=== PATIENT | female | born 1970 | race Caucasian/White ===

== ENCOUNTER → 2024-04-30 09:47 | Outpatient (CLI) | payer OTHER, SELFPAY ==
--- NOTE | 2024-04-30 | DI.MG.S_ITS ---
BILATERAL DIGITAL DIAGNOSTIC MAMMOGRAM 3D/2D: 04/30/2024 CLINICAL: Right breast lump 2 weeks ago feels irregular and moves --smaller than a dime size. No CBE done. Due for bilateral routine. Family history of breast cancer. Comparison is made to exams dated: 10/07/2020 mammogram - [facility] and 10/08/2020 mammogram. The breasts are extremely dense, which lowers the sensitivity of mammography (category d />75% glandular tissue). There is a 1.3 cm oval focal asymmetry with an obscured margin in the right breast at 10 o'clock anterior depth. This correlates as palpated, with area of clinical concern, and skin marker. No other significant masses, calcifications, or other findings are seen in either breast. IMPRESSION: INCOMPLETE: NEED ADDITIONAL IMAGING EVALUATION The 1.3 cm oval focal asymmetry in the right breast resembles a cyst and is indeterminate. An ultrasound is recommended for further evaluation and is scheduled to immediately follow this examination. Based on Tyrer-Cuzick model (a risk assessment model), the patient's lifetime risk is 39.6% and her 10 year risk is 11.7%. If a patient has an elevated risk, a more comprehensive evaluation should be considered and/or a referral to a genetic counselor. The [employer] [employer], [employer], and NCCN Guidelines advise the consideration of Breast MRI as an adjunct to screening mammography in patients whose Lifetime risk to develop breast cancer is 20% or higher. This exam was interpreted at Station ID: [id number]. NOTE: For mammograms, a report in lay terms will be sent to the patient. Approximately 15% of breast malignancies will not be visualized mammographically. In the management of a palpable breast mass, a negative mammogram must not discourage biopsy of a clinically suspicious lesion. Electronically Signed By: Dom Elias M.D. aty/:04/30/2024 11:37:18 letter sent: Additional Imaging Needed ACR BI-RADS Category 0: Incomplete: Need Additional Imaging Evaluation
--- NOTE | 2024-04-30 | DI.US.S_ITS ---
PROCEDURE: US BREAST RT LIMITED COMPARISON: None. INDICATIONS: right breast mass FINDINGS: IMPRESSION: Dictated by: Dom Elias M.D. on 04/30/2024 at 11:14 Approved by: Dom Elias M.D. on 04/30/2024 at 11:15
--- NOTE | 2024-04-30 10:59 | DI.US.S_ITS ---
Patient Name: NIA RICHTER date: 1970 Sex: F Attending Physician: Jeremy Indications: Date: 04/30/2024 11:19 At the request of: STEVEN FRANKLIN Procedure: US breast RT limited LIMITED ULTRASOUND OF RIGHT BREAST AND AXILLA: 04/30/2024 CLINICAL: Palpable right breast lump. Comparison is made to exams dated: 04/30/2024 mammogram - [facility], 10/08/2020 mammogram, and 10/07/2020 mammogram - [facility]. Color flow and real-time ultrasound of the right breast 10 o'clock, and axilla regions were performed. Barriga scale images of the real-time examination were reviewed. There is a 1.5 cm x 1.2 cm x 1.5 cm wider than tall simple cyst in the right breast at 10 o'clock anterior depth 4 cm from the nipple. This simple cyst is hypoechoic with a well-defined boundary and posterior acoustic enhancement and mild mobile internal debris. This correlates as palpated, with mammography findings, and area of clinical concern. Color flow imaging demonstrates that there is no vascularity present. No significant abnormalities were seen sonographically in the right axilla. IMPRESSION: BENIGN There is no sonographic evidence of malignancy. The 1.5 cm x 1.2 cm x 1.5 cm wider than tall simple cyst in the right breast is benign. Recommend clinical follow up for persistent or worsening symptoms, or development of any clinically suspicious findings. A 1 year screening mammogram is recommended. Additionally, patient has an elevated lifetime risk for breast cancer of greater than 20%. Recommend consideration for screening breast MRI as an adjunct to screening mammography. Continued Report - Page 2 of 2 Patient Name: NIA RICHTER date: 1970 Sex: F Attending Physician: Jeremy Indications: Date: 04/30/2024 11:19 At the request of: STEVEN FRANKLIN Procedure: US breast RT limited Findings and recommendations were conveyed to the patient during today's evaluation. This exam was interpreted at Station ID: [id number]. Electronically Signed By: Dom Elias M.D. aty/:04/30/2024 11:19:42 copy to: TYRONE LACKEY M.D. letter sent: Clinical Evaluation ACR BI-RADS Category 2: Benign
== END ==
PROVIDERS: PCP Family Medicine; Referring Provider Family Medicine; Visit Provider Family Medicine
DX: R92.8 Other abnormal and inconclusive findings on diagnostic imaging of breast (principal); N60.01 Solitary cyst of right breast; N63.11 Unspecified lump in the right breast, upper outer quadrant; R92.343 Mammographic extreme density, bilateral breasts
CPT/HCPCS: 76642; 77066; G0279